=== PATIENT | female | born 1975 | race Caucasian/White ===

== ENCOUNTER 2017-02-13 18:09 | Emergency (ER) | payer MEDICAID ==
[2017-02-13] MEDS ORDERED: Morphine 4 mg/ml ISec IVP STA (19:47)
--- NOTE | 2017-02-13 19:51 | ED PDOC ---
"Arrival/HPI - General Chief Complaint: Abdominal Pain Time Seen by Provider: 02/13/17 19:46 Historian: Patient - History of Present Illness Narrative History of Present Illness (Text): 02/13/17 19:49 41 y/o female, no significant pmh, nkda, c/o urinary symptoms x 2 weeks and flank pain with fever for the past several days. Pt. stated that she has been having urinary symptoms for the past 2 weeks, started with the flank pain bilaterally and fever for the past 2-3 days, no nausea or vomiting, no night sweat, no dizziness, no rash, no numbness or tingling, no rash, no other medical or psychological complaints. Past Medical History - Provider Review Nursing Documentation Reviewed: Yes - Infectious Disease Hx of Infectious Diseases: None - Psychiatric Hx Substance Use: No - Anesthesia Hx Anesthesia: No Family/Social History - Physician Review Nursing Documentation Reviewed: Yes Family/Social History: Unknown Family HX Smoking Status: Unknown If Ever Smoked Hx Alcohol Use: No Hx Substance Use: No Allergies/Home Meds Allergies/Adverse Reactions: Allergies No Known Allergies Allergy (Verified 02/13/17 19:38) Review of Systems - Review of Systems Constitutional: Fevers. absent: Fatigue Eyes: absent: Vision Changes ENT: absent: Hearing Changes Respiratory: absent: SOB, Cough Cardiovascular: absent: Chest Pain Gastrointestinal: absent: Abdominal Pain, Nausea, Vomiting Genitourinary Female: Dysuria. absent: Frequency, Hematuria, Urine Output Changes, Vaginal Bleeding, Vaginal Discharge Musculoskeletal: Back Pain. absent: Arthralgias, Neck Pain Skin: absent: Rash, Pruritis Neurological: absent: Headache, Dizziness Psychiatric: absent: Anxiety, Depression Physical Exam Vital Signs Reviewed: Yes Vital Signs Temp Pulse Resp BP Pulse Ox 02/13/17 22:42 100.7 F H 85 18 96/61 L 97 02/13/17 19:35 100.5 F H 102 H 16 102/65 99 02/13/17 18:10 100.5 F H 102 H 16 102/65 99 Temperature: Febrile Blood Pressure: Normal Pulse: Tachycardic Respiratory Rate: Normal Appearance: Positive for: Well-Appearing, Non-Toxic Pain Distress: Severe Mental Status: Positive for: Alert and Oriented X 3 - Systems Exam Head: Present: Atraumatic, Normocephalic Pupils: Present: PERRL Extroacular Muscles: Present: EOMI Conjunctiva: Present: Normal Mouth: Present: Moist Mucous Membranes Neck: Present: Normal Range of Motion Respiratory/Chest: Present: Clear to Auscultation, Good Air Exchange. No: Respiratory Distress, Accessory Muscle Use Cardiovascular: Present: Regular Rate and Rhythm, Normal S1, S2. No: Murmurs Abdomen: Present: Normal Bowel Sounds. No: Tenderness, Distention, Peritoneal Signs Back: Present: Normal Inspection, CVA Tenderness (bilateral). No: Midline Tenderness, Paraspinal Tenderness, Pain with Leg Raise, Decubitus Ulcer Upper Extremity: Present: Normal Inspection. No: Cyanosis, Edema Lower Extremity: Present: Normal Inspection. No: Edema Neurological: Present: GCS=15, Speech Normal, Motor Func Grossly Intact, Gait Normal, Memory Normal Skin: Present: Warm, Dry, Normal Color. No: Rashes Psychiatric: Present: Alert, Oriented x 3, Normal Insight, Normal Concentration Medical Decision Making ED Course and Treatment: 02/13/17 19:51 -labs/ua -CT abdomen and pelvis -IVF/morphine 4mg -Observe and reassess 02/13/17 22:55 -Lactic acid is 0.6 -UA show +UTI, IV rocephine ordered. -Labs show no acute findings, no elevation of wbc, normal bun/creatine level. -CT abdomen/pelvis show: Urinary tract infection and pyelonephritis, no renal or ureteral stones; gallstone; fatty liver -Pain resolved, feeling much better. -Case/labs/radiology result discussed with Dr. Marcos and reviewed radiology result together, Dr. Marcos suggest to discharge home with oral antibiotic and outpatient follow up. -Discussed with the patient about the side effect of taking levaquin including but not limited to prolong QT and possible achilles tendon rupture, pt. verbally expressed understanding that she understand and willing to take this medication. -Discharge home with levaquin, tylenol, follow up with your own pmd and GI/ urologist/ply splicer within 2 days, return to the ER for any new or worsening signs or symptoms. - Lab Interpretations Lab Results: 02/13/17 20:45 02/13/17 20:45 Lab Results 02/13/17 20:45: pO2 21 L, VBG pH 7.33, VBG pCO2 59.0, VBG HCO3 31.1 H, VBG Total CO2 32.9 H, VBG O2 Sat (Calc) 56.4, VBG Base Excess 3.6 H, VBG Potassium 3.8, Sodium 139.0, Chloride 103.0, Glucose 93, Lactate 0.6 L, FiO2 21.0, Venous Blood Potassium 3.8 02/13/17 20:45: WBC 9.3, RBC 4.36, Hgb 12.3, Hct 37.0, MCV 84.9, MCH 28.2, MCHC 33.2, RDW 13.3, Plt Count 366, MPV 9.4, Gran % 74.8 H, Lymph % (Auto) 17.7 L, [place] % (Auto) 6.8 H, Eos % (Auto) 0.3 L, Baso % (Auto) 0.4, Gran # 6.95 H, Lymph # 1.7, [place] # 0.6, Eos # 0.0, Baso # 0.04 02/13/17 20:45: Sodium 141, Chloride 100, Potassium 3.8, Carbon Dioxide 29, Anion Gap 16, BUN 12, Creatinine 0.8, Est GFR ( Amer) > 60, Est GFR (Non- Af Amer) > 60, Random Glucose 93, Calcium 10.2, Magnesium 1.8, Total Bilirubin 0.3, AST 33, ALT 19, Alkaline Phosphatase 92, Total Protein 8.8 H, Albumin 4.5, Globulin 4.3, Albumin/Globulin Ratio 1.0 L, Lipase 82 02/13/17 20:45: Urine Color Yellow, Urine Appearance Sl cloudy, Urine pH 6.0, Ur Specific Stella 1.010, Urine Protein Negative, Urine Glucose (UA) Negative, Urine Ketones Negative, Urine Blood Moderate H, Urine Nitrate Negative, Urine Bilirubin Negative, Urine Urobilinogen 0.2, Ur Leukocyte Esterase Large H, Urine RBC 5 - 10, Urine WBC Tntc, Ur Epithelial Cells 0 - 2, Urine Bacteria Many I have reviewed the lab results: Yes Interpretation: Abnormal lab values (+UTI) - RAD Interpretation Radiology Orders: 02/13/17 19:47 ABDOMEN & PELVIS [ABD & PELVIS IV CONTRAST ONLY] [CT] Stat FINDINGS: Lower thorax: Heart size is normal. There is dependent atelectasis at the lung bases. ABDOMEN: Liver: There is fatty infiltration of the liver. Gallbladder and bile ducts: Gallbladder is distended with a small dependent stones. Common duct is unremarkable. Pancreas: unremarkable Spleen: unremarkable Adrenals: Right adrenal is unremarkable. There is a small left adrenal nodule. CONOR NARAYAN | Final Radiology Report CONFIDENTIALITY STATEMENT This report is intended only for use by the referring physician, and only in accordance with law. If you received this in error, call [phone]. Page 2 of 2 Kidneys and ureters: There are small extrarenal pelves bilaterally. There is mild proximal and mid ureterectasis. There is mild thickening and enhancement of renal pelvic mucosa and proximal ureteral mucosa. There are subtle cortical renal perfusion defects bilaterally right greater than left. Stomach and bowel: Stomach is almost completely empty. Rotation is normal. Small bowel is mildly distended with fluid and air. Degree of distention decreases distally. There is fecalization of the distal and terminal ileum. Appendix is not visualized.There is no pericecal inflammation. Colon is incompletely distended which limits evaluation. Appendix: See stomach and bowel PELVIS: Bladder: Urinary bladder is unremarkable. Reproductive: Uterus and adnexal structures are unremarkable. ABDOMEN and PELVIS: Intraperitoneal space: There is no free air or free fluid. Bones/joints: There are no acute osseous abnormalities. There is sclerosis at the left sacroiliac joint with joint space narrowing. Soft tissues: unremarkable Vasculature: Vascular structures are unremarkable. Lymph nodes: There is no pathologic adenopathy. IMPRESSION: Urinary tract infection and pyelonephritis, no renal or ureteral stones; gallstone; fatty liver Additional findings as described above. Thank you for allowing us to participate in the care of your patient. Dictated and Authenticated by: Celena Zaman Journeyman Pipefitter: Radiologist - Medication Orders Current Medication Orders: Discontinued Medications Acetaminophen (Tylenol 325mg Tab) 650 mg PO STAT STA Stop: 02/13/17 22:53 Sodium Chloride (Sodium Chloride 0.9%) 1,000 mls @ 999 mls/hr IV .Q1H1M STA Stop: 02/13/17 20:47 Last Admin: 02/13/17 20:59 Dose: 999 mls/hr eMAR Start Stop Document 02/13/17 20:59 SRE (Rec: 02/13/17 21:00 SRE [email or web address]) Intravenous Solution Start Date 02/13/17 Start Time 20:45 End Date 02/13/17 End time 21:45 Total Infusion Time 60 Ceftriaxone Sodium (Rocephin 1 Gram Ivpb) 1 gm in 100 mls @ 200 mls/hr IVPB STAT STA PRN Reason: Protocol Stop: 02/13/17 21:39 Last Admin: 02/13/17 22:28 Dose: 200 mls/hr eMAR Start Stop Document 02/13/17 22:28 CHINYERE (Rec: 02/13/17 22:28 CHINYERE [email or web address]) Intravenous Solution Start Date 02/13/17 Start Time 22:00 End Date 02/13/17 End time 22:28 Total Infusion Time 28 Morphine Sulfate (Morphine) 4 mg IVP STAT STA Stop: 02/13/17 19:48 Last Admin: 02/13/17 20:45 Dose: 4 mg MAR Pain Assessment Document 02/13/17 20:45 SRE (Rec: 02/13/17 21:01 SRE [email or web address]) Pain Reassessment Is this a pain reassessment? Yes Sleep Is patient sleeping during reassessment? No Presence of Pain Presence of Pain Yes Pain Scale Used Pain Scale Used Numeric Location Left, Right or Bilateral Bilateral Pain Location Body Site Abdomen Back IVP Administration Document 02/13/17 20:45 SRE (Rec: 02/13/17 21:01 SRE [email or web address]) Charges for Administration # of IVP Administrations 1 - PA / PHOTOGRAPHER'S ASSISTANT / Resident Statement MD/DO has reviewed & agrees with the documentation as recorded. Disposition/Present on Arrival - Present on Arrival Any Indicators Present on Arrival: No History of DVT/PE: No History of Uncontrolled Diabetes: No Urinary Catheter: No History of Decub. Ulcer: No History Surgical Site Infection Following: None - Disposition Have Diagnosis and Disposition been Completed?: Yes Diagnosis: UTI (urinary tract infection), Pyelonephritis, Fatty liver, Abnormal CT scan Disposition: HOME/ ROUTINE Disposition Time: 22:56 Patient Plan: Discharge Patient Problems: Current Active Problems Problem Status Onset Abnormal CT scan Acute Fatty liver Acute Pyelonephritis Acute UTI (urinary tract infection) Acute Condition: IMPROVED Discharge Instructions (ExitCare): Urinary Tract Infection in Women (ED) Print Language: CYPRIOT Additional Instructions: -Discharge home with levaquin, tylenol, follow up with your own pmd and GI/ urologist/ply splicer within 2 days, return to the ER for any new or worsening signs or symptoms. Prescriptions: Acetaminophen [Tylenol 325mg tab] 2 tab PO QID PRN #30 tab PRN Reason: Other levoFLOXacin [Levaquin] 750 mg PO DAILY #5 tab Phenazopyridine [Phenazopyridine HCl] 200 mg PO TID #6 tab Referrals: Glenn Lima MD [Staff Provider] - Follow up with primary Stephen Tanner MD [Staff Provider] - Follow up with primary Anjum King MD [Staff Provider] - Follow up with primary Forms: [employer] ([place]), WORK NOTE"
[2017-02-13] MEDS: Sodium Chloride 0.9% 1,000 ML IV STA ×2 (20:59→23:32)
[2017-02-13 21:02] LABS: URINE BILIRUBIN NEGATIVE (NEGATIVE); URINE BLOOD MODERATE (NEGATIVE); URINE GLUCOSE (UA) NEGATIVE (NEGATIVE); URINE LEUKOCYTE ESTERASE LARGE Leu/uL (NEGATIVE); URINE NITRATE NEGATIVE (NEGATIVE); URINE PROTEIN NEGATIVE mg/dL (<30 mg/dL); URINE UROBILINOGEN 0.2 E.U./dL (<1 E.U./dL)
[2017-02-13 21:03] LABS: URINE APPEARANCE SL CLOUDY (CLEAR); URINE COLOR YELLOW (YELLOW)
[2017-02-13 21:04] LABS: BASO # 0.04 K/mm3 (0.0-2.0); BASO % 0.4 % (0.0-3.0); EOS % 0.3 % (1.5-5.0); GRAN # 6.95 (1.4-6.5); GRAN % 74.8 % (50.0-68.0); HEMOGLOBIN 12.3 g/dL (12.0-16.0); LYMPH # 1.7 (1.2-3.4); LYMPH % 17.7 % (22.0-35.0); MEAN CELL VOLUME 84.9 fl (80.0-105.0); MEAN CORPUSCULAR HEMOGLOBIN 28.2 pg (25.0-35.0); MEAN CORPUSCULAR HGB CONC 33.2 g/dl (31.0-37.0); MEAN PLATELET VOLUME 9.4 fl (7.0-11.0); MONO # 0.6 (0.1-0.6); MONO % 6.8 % (1.0-6.0); RBC 4.36 10^6/uL (3.5-6.1); RED CELL DISTRIBUTION WIDTH 13.3 % (11.5-14.5); WHITE BLOOD COUNT 9.3 10^3/ul (4.5-11.0)
[2017-02-13 21:07] LABS: VENOUS BLOOD GAS BASE EXCESS 3.6 mmol/L (0.0-2.0); VENOUS BLOOD GAS PO2 21 mm/Hg (30-55); VENOUS BLOOD PH 7.33 (7.32-7.43)
[2017-02-13] MEDS ORDERED: Iohexol 350 MG/100 ML VIAL ONE (21:09)
[2017-02-13 21:21] LABS: ALBUMIN 4.5 g/dL (3.0-4.8); ALT/SGPT 19 U/L (7-56); AST/SGOT 33 U/L (14-36); BLOOD UREA NITROGEN 12 mg/dL (7-21); CALCIUM 10.2 mg/dL (8.4-10.5); GFR AFRICAN-AMERICAN > 60; GFR NON-AFRICAN AMERICAN > 60; LIPASE 82 U/L (23-300); MAGNESIUM 1.8 mg/dL (1.7-2.2)
[2017-02-13 21:26] LABS: URINE WBC TNTC /hpf (0-6)
[2017-02-13 21:27] LABS: URINE BACTERIA MANY (NEG); URINE EPITHELIAL CELLS 0 - 2 /hpf (0-5)
[2017-02-13] MEDS: cefTRIAXone 1 gm 1 GM/100 ML BAG IVPB STA ×2 (21:58→22:28)
--- NOTE | 2017-02-13 22:17 | CT ---
EXAM: CT Abdomen and Pelvis With Intravenous Contrast EXAM DATE/TIME: 02/13/2017 7:47 PM CLINICAL HISTORY: 41 years old, female; Pain; Abdominal pain; Flank; Other: Bilateral; Additional info: Bilateral flank pain TECHNIQUE: Axial computed tomography images of the abdomen and pelvis with intravenous contrast. All CT scans at this facility use one or more dose reduction techniques, viz.: automated exposure control; ma/kV adjustment per patient size (including targeted exams where dose is matched to indication; i.e. head); or iterative reconstruction technique. Coronal and sagittal reformatted images were created and reviewed. CONTRAST: 100 mL of OMNI administered intravenously. COMPARISON: There are no prior studies for comparison. FINDINGS: Lower thorax: Heart size is normal. There is dependent atelectasis at the lung bases. ABDOMEN: Liver: There is fatty infiltration of the liver. Gallbladder and bile ducts: Gallbladder is distended with a small dependent stones. Common duct is unremarkable. Pancreas: unremarkable Spleen: unremarkable Adrenals: Right adrenal is unremarkable. There is a small left adrenal nodule. Kidneys and ureters: There are small extrarenal pelves bilaterally. There is mild proximal and mid ureterectasis. There is mild thickening and enhancement of renal pelvic mucosa and proximal ureteral mucosa. There are subtle cortical renal perfusion defects bilaterally right greater than left. Stomach and bowel: Stomach is almost completely empty. Rotation is normal. Small bowel is mildly distended with fluid and air. Degree of distention decreases distally. There is fecalization of the distal and terminal ileum. Appendix is not visualized.There is no pericecal inflammation. Colon is incompletely distended which limits evaluation. Appendix: See stomach and bowel PELVIS: Bladder: Urinary bladder is unremarkable. Reproductive: Uterus and adnexal structures are unremarkable. ABDOMEN and PELVIS: Intraperitoneal space: There is no free air or free fluid. Bones/joints: There are no acute osseous abnormalities. There is sclerosis at the left sacroiliac joint with joint space narrowing. Soft tissues: unremarkable Vasculature: Vascular structures are unremarkable. Lymph nodes: There is no pathologic adenopathy. IMPRESSION: Urinary tract infection and pyelonephritis, no renal or ureteral stones; gallstone; fatty liver Additional findings as described above.
[2017-02-13 22:42] VITALS: RESP 18; O2SAT 97
[2017-02-14 01:38] VITALS: BP 90/55; PULSE 78; TEMP 99.1
== END 2017-02-14 02:06 | disposition home or self-care (01) ==
LOC: ED 18:09
DX: K76.0 Fatty (change of) liver, not elsewhere classified (principal); N12 Tubulo-interstitial nephritis, not specified as acute or chronic; R94.8 Abnormal results of function studies of other organs and systems
CPT/HCPCS: 74177; 80053; 81001; 82803; 83690; 83735; 85025; 87086; 96361; 96365; 96375; 99285; J0696; J2270; J7040; Q9967